=== PATIENT | male | born 1940 | race Caucasian/White ===

== ENCOUNTER 2017-08-12 13:11 | Inpatient (IN) | payer OTHER ==
[~2017-08-12] VITALS: Ht 167.6 cm; Wt 54.3 kg
[2017-08-12 14:14] LABS: EOSINOPHIL (%) 0 % (0-5); HEMATOCRIT 34.3 % (38.0-50.0); IMMATURE GRANULOCYTE (%) 0.6 % (0.0-0.7); IMMATURE GRANULOCYTE COUNT 0.1 K/uL; INSTRUMENT ABS NEUTROPHIL CT 10.1 K/uL; MCH 29.2 PG (29.0-34.0); MCHC 32.7 G/DL (30.0-36.0); MCV 89.6 FL (86-99); MEAN PLAT.VOLUME 9.3 uM^3 (9.0-12.4); MONOCYTE (%) 7.6 % (3-12); MONOCYTE COUNT 0.9 K/uL (0-0.8); NEUTROPHIL (%) 83.6 % (45-76); NEUTROPHIL COUNT 10.1 K/uL (1.8-6.4); PLATELET COUNT 269 K/uL (156-360); RBC DIS.WIDTH-CV 12.8 % (11.8-14.6); RBC DIS.WIDTH-SD 41.8 % (39-53); RED BLOOD COUNT 3.83 M/uL (4.00-5.50); WHITE BLOOD COUNT 12.1 K/uL (4.1-10.2)
[2017-08-12 14:20] LABS: INTER. NORMALIZED RATIO 1.2
[2017-08-12 14:22] LABS: PTT 28.1 SEC (25-37)
[2017-08-12 14:22] LABS: CHLORIDE 100 mEq/L (99-109); SODIUM 137 mEq/L (136-147)
[2017-08-12 14:23] LABS: GLUCOSE 255 mg/dL (70-99)
[2017-08-12 14:25] LABS: ANION GAP 15 MEQ/L (2-14)
[2017-08-12 14:27] LABS: GFR ESTIMATE (CALCULATED) > 59 mL/min/ (58.99-99999)
[2017-08-12 14:28] LABS: UREA NITROGEN (BUN) 17 mg/dL (9-23)
[2017-08-12 14:35] LABS: TROP-I INTERPRETATION NEGATIVE; TROPONIN-I < 0.01 ng/mL (0.0-0.30)
[2017-08-12 15:19] LABS: BASE EXCESS -0.8 mEq/L (-3 to +3); BICARBONATE 23.4 mEq/L (22-26); CARBOXY HGB 2.2 % (0-5); METHEMOGLOBIN 1.2 % (0-1.5); PCO2 36 mm Hg (35-45); PO2 69 mm Hg (80-100); pH 7.42 (7.35-7.45)
[2017-08-12 15:20] LABS: COMMENTS - BLOOD GASES A+C+; DEVICE NC; O2 FLOW 1 L/MIN; SITE LR
[2017-08-12] MEDS ORDERED: ADVAIR 250/501 DISK IH (15:52)
[2017-08-12] MEDS ORDERED: PROAIR HFA8.5 GM IH (15:53)
[2017-08-12] MEDS ORDERED: PRAVACHOL40 MG PO (15:53)
[2017-08-12] MEDS ORDERED: SPIRIVA RESPIMAT4 GM IH (15:53)
[2017-08-12] MEDS ORDERED: GLUCOPHAGE1000 MG PO (15:54)
[2017-08-12] MEDS ORDERED: LOPRESSOR25 MG PO (15:55)
[2017-08-12] MEDS ORDERED: LANTUS 10100 UNITS/ SC (15:55)
[2017-08-12] MEDS ORDERED: SINGULAIR10 MG PO (15:56)
[2017-08-12] MEDS ORDERED: ALTACE10 MG PO (15:56)
[2017-08-12] MEDS ORDERED: THEO-24300 MG PO (15:57)
[2017-08-12 16:18] VITALS: BP 136/84
[2017-08-12 16:45] VITALS: BP 173/96
[2017-08-12 18:01] LABS: POINT-OF-CARE METER ID UU14314088
[2017-08-12 19:57] VITALS: BP 157/85
[2017-08-12 20:40] LABS: POINT-OF-CARE METER ID UU14174216
[2017-08-13 00:37] VITALS: BP 157/82
[2017-08-13 00:49] LABS: TROP-I INTERPRETATION NEGATIVE; TROPONIN-I 0.03 ng/mL (0.0-0.30)
[2017-08-13 05:10] VITALS: BP 136/70
[2017-08-13 06:17] LABS: HEMATOCRIT 31.2 % (38.0-50.0); MCH 29.5 PG (29.0-34.0); MCV 89.4 FL (86-99); MEAN PLAT.VOLUME 9.3 uM^3 (9.0-12.4); PLATELET COUNT 269 K/uL (156-360); RBC DIS.WIDTH-CV 12.7 % (11.8-14.6); RED BLOOD COUNT 3.49 M/uL (4.00-5.50); WHITE BLOOD COUNT 12.1 K/uL (4.1-10.2)
[2017-08-13 06:41] LABS: ANION GAP 13 MEQ/L (2-14); CHLORIDE 96 MEQ/L (99-109); GFR ESTIMATE (CALCULATED) > 59 mL/min/ (58.99-99999); GLUCOSE 310 mg/dL (70-99); SAMPLE HEMOLYSIS CHECK 0; SAMPLE ICTERIC CHECK 0; SAMPLE LIPEMIA CHECK 0; SODIUM 133 MEQ/L (136-147); UREA NITROGEN (BUN) 20 mg/dL (9-23)
[2017-08-13 06:54] LABS: TROP-I INTERPRETATION NEGATIVE; TROPONIN-I < 0.01 ng/mL (0.0-0.30)
[2017-08-13 07:10] VITALS: BP 143/76
[2017-08-13 08:24] LABS: POINT-OF-CARE METER ID UU14314088; POINT-OF-CARE USER ID ENVKC36
[2017-08-13 11:55] VITALS: BP 152/87
[2017-08-13 12:06] LABS: POINT-OF-CARE METER ID UU13113698; POINT-OF-CARE USER ID ENVKC36
[2017-08-13 15:33] VITALS: BP 162/74
[2017-08-13 16:33] LABS: POINT-OF-CARE METER ID UU13113698; POINT-OF-CARE USER ID ENVKC36
[2017-08-13 19:00] VITALS: BP 164/81
[2017-08-13 21:09] LABS: POINT-OF-CARE METER ID UU13113698
[2017-08-14 00:10] VITALS: BP 168/94
[2017-08-14 04:00] VITALS: BP 133/82
[2017-08-14 05:43] LABS: EOSINOPHIL (%) 0 % (0-5); HEMATOCRIT 30.3 % (38.0-50.0); IMMATURE GRANULOCYTE (%) 0.9 % (0.0-0.7); IMMATURE GRANULOCYTE COUNT 0.1 K/uL; INSTRUMENT ABS NEUTROPHIL CT 10.9 K/uL; LYMPHOCYTE COUNT 0.4 K/uL (1.0-2.8); MCH 29.3 PG (29.0-34.0); MCHC 33.3 G/DL (30.0-36.0); MCV 87.8 FL (86-99); MEAN PLAT.VOLUME 9.4 uM^3 (9.0-12.4); MONOCYTE (%) 2.2 % (3-12); MONOCYTE COUNT 0.3 K/uL (0-0.8); NEUTROPHIL (%) 93.6 % (45-76); NEUTROPHIL COUNT 10.9 K/uL (1.8-6.4); PLATELET COUNT 280 K/uL (156-360); RBC DIS.WIDTH-CV 12.5 % (11.8-14.6); RBC DIS.WIDTH-SD 40.2 % (39-53); RED BLOOD COUNT 3.45 M/uL (4.00-5.50); WHITE BLOOD COUNT 11.6 K/uL (4.1-10.2)
[2017-08-14 06:11] LABS: ANION GAP 9 MEQ/L (2-14); CHLORIDE 98 MEQ/L (99-109); GFR ESTIMATE (CALCULATED) > 59 mL/min/ (58.99-99999); GLUCOSE 189 mg/dL (70-99); POTASSIUM 4.3 MEQ/L (3.7-5.4); SAMPLE HEMOLYSIS CHECK 0; SAMPLE ICTERIC CHECK 0; SAMPLE LIPEMIA CHECK 0; SODIUM 135 MEQ/L (136-147); UREA NITROGEN (BUN) 28 mg/dL (9-23)
[2017-08-14 07:46] LABS: POINT-OF-CARE METER ID UU14314088; POINT-OF-CARE USER ID ENVKC36
[2017-08-14 08:00] VITALS: BP 155/86
[2017-08-14 11:40] VITALS: BP 173/85
[2017-08-14 17:21] VITALS: BP 177/92
[2017-08-14 17:40] VITALS: BP 150/75
[2017-08-14 17:41] LABS: POINT-OF-CARE METER ID UU14149397
[2017-08-14 21:37] LABS: POINT-OF-CARE METER ID UU14149397
[2017-08-15] VITALS (7 sets, daily range): BP systolic 149–183; BP diastolic 74–88
[2017-08-15 06:29] LABS: POINT-OF-CARE METER ID UU14117124
[2017-08-15 07:07] LABS: EOSINOPHIL (%) 0 % (0-5); HEMATOCRIT 30.8 % (38.0-50.0); IMMATURE GRANULOCYTE (%) 1.5 % (0.0-0.7); IMMATURE GRANULOCYTE COUNT 0.2 K/uL; INSTRUMENT ABS NEUTROPHIL CT 9.9 K/uL; LYMPHOCYTE COUNT 0.5 K/uL (1.0-2.8); MCH 29.2 PG (29.0-34.0); MCHC 33.1 G/DL (30.0-36.0); MCV 88.3 FL (86-99); MEAN PLAT.VOLUME 9.2 uM^3 (9.0-12.4); MONOCYTE COUNT 0.4 K/uL (0-0.8); NEUTROPHIL (%) 90.1 % (45-76); NEUTROPHIL COUNT 9.9 K/uL (1.8-6.4); PLATELET COUNT 309 K/uL (156-360); RBC DIS.WIDTH-CV 12.6 % (11.8-14.6); RBC DIS.WIDTH-SD 40.9 % (39-53); RED BLOOD COUNT 3.49 M/uL (4.00-5.50)
[2017-08-15 07:30] LABS: ANION GAP 7 MEQ/L (2-14); CHLORIDE 101 MEQ/L (99-109); GFR ESTIMATE (CALCULATED) > 59 mL/min/ (58.99-99999); GLUCOSE 140 mg/dL (70-99); POTASSIUM 4.5 MEQ/L (3.7-5.4); SAMPLE HEMOLYSIS CHECK 0; SAMPLE ICTERIC CHECK 0; SAMPLE LIPEMIA CHECK 0; SODIUM 139 MEQ/L (136-147); UREA NITROGEN (BUN) 23 mg/dL (9-23)
[2017-08-15 09:39] LABS: POINT-OF-CARE METER ID UU13113781; POINT-OF-CARE USER ID ENVKC36
[2017-08-15 14:16] LABS: POINT-OF-CARE METER ID UU14188577
[2017-08-15 16:45] LABS: POINT-OF-CARE METER ID UU14188577
[2017-08-15 21:21] LABS: POINT-OF-CARE METER ID UU14117124
[2017-08-16 04:19] VITALS: BP 169/86
[2017-08-16 06:42] LABS: POINT-OF-CARE METER ID UU14188577
[2017-08-16 07:29] VITALS: BP 141/79
[2017-08-16 11:43] VITALS: BP 179/87
[2017-08-16 12:02] LABS: POINT-OF-CARE METER ID UU14117124
[2017-08-16 15:50] VITALS: BP 170/86
[2017-08-16 16:22] LABS: POINT-OF-CARE METER ID UU14188577
[2017-08-16 19:44] VITALS: BP 173/96
[2017-08-16 21:56] LABS: POINT-OF-CARE METER ID UU14208753
[2017-08-16 23:22] VITALS: BP 158/87
[2017-08-17 06:46] LABS: POINT-OF-CARE METER ID UU14117124
[2017-08-17 07:34] VITALS: BP 171/95
[2017-08-17 11:50] VITALS: BP 141/82
[2017-08-17 16:19] VITALS: BP 136/88
[2017-08-17 17:02] LABS: POINT-OF-CARE METER ID UU14208753
[2017-08-17 19:34] VITALS: BP 178/84
[2017-08-17 21:49] LABS: POINT-OF-CARE METER ID UU14208753
[2017-08-17 23:25] VITALS: BP 138/68
[2017-08-18 03:35] VITALS: BP 160/85
[2017-08-18 06:45] LABS: POINT-OF-CARE METER ID UU14117124
[2017-08-18 07:31] VITALS: BP 164/88
[2017-08-18 11:16] VITALS: BP 151/73
[2017-08-18] MEDS ORDERED: AMOX TR-K CLV1 EAC4 PO (12:49)
[2017-08-18] MEDS ORDERED: LOPRESSOR25 MG PO ×2 (12:49→13:03)
[2017-08-18] MEDS ORDERED: AMLODIPINE BESY10 MG PO (12:49)
[2017-08-18] MEDS ORDERED: PREDNISONE10 MG PO (12:53)
[2017-08-18] MEDS ORDERED: LANTUS 10100 UNITS/ SC (13:09)
[2017-08-18] MEDS ORDERED: SPIRIVA RESPIMAT4 GM IH (13:30)
[2017-08-18] MEDS ORDERED: PROAIR HFA8.5 GM IH (13:30)
[2017-08-18] MEDS ORDERED: ADVAIR 250/501 DISK IH (13:30)
[2017-08-20 10:38] LABS: POINT-OF-CARE METER ID UU14188577
== END 2017-08-18 14:18 | disposition home health service (06) | DRG 189 ==
LOC: EME 13:11 → 4EAST 15:11 → EDOF 15:11 → ENRESERV 15:12 → 4EAST 16:02 → ENRESERV 08-14 14:37 → 3EAST 08-14 16:05
PROVIDERS: Emergency Medicine; Internal Medicine; Student in an Organized Health Care Education/Training Program
DX: J96.01 Acute respiratory failure with hypoxia (principal); J44.1 Chronic obstructive pulmonary disease with (acute) exacerbation; J44.0 Chronic obstructive pulmonary disease with (acute) lower respiratory infection; J18.9 Pneumonia, unspecified organism; J20.9 Acute bronchitis, unspecified; E11.65 Type 2 diabetes mellitus with hyperglycemia; E78.5 Hyperlipidemia, unspecified; I10 Essential (primary) hypertension; I49.3 Ventricular premature depolarization; Z79.4 Long term (current) use of insulin; Z87.891 Personal history of nicotine dependence; Z91.14 Patient's other noncompliance with medication regimen
CPT/HCPCS: 36600; 71010; 71275; 80048; 82803; 82948; 84484; 85025; 85027; 85610; 85730; 87449; 87502; 93005; 93306; 94640; 94640 76; 94760; 94799; 99202; 99281; 99285; J0360; J0456; J0696; J1650; J1815; J2920; J2930; J7030; J7512

== ENCOUNTER 2017-10-27 10:53 | Inpatient (IN) | payer OTHER ==
[~2017-10-27] VITALS: Ht 167.6 cm; Wt 54.7 kg
[~2017-10-27 10:53] MED LIST: ADVAIR 250/501 DISK IH; ALTACE10 MG PO; AMLODIPINE BESY10 MG PO; AMOX TR-K CLV1 EAC4 PO; GLUCOPHAGE1000 MG PO; LANTUS 10100 UNITS/ SC; LOPRESSOR25 MG PO; PRAVACHOL40 MG PO; PREDNISONE10 MG PO; PROAIR HFA8.5 GM IH; SINGULAIR10 MG PO; SPIRIVA RESPIMAT4 GM IH; THEO-24300 MG PO
[2017-10-27 11:33] LABS: BASOPHIL (%) 0.1 % (0-1); EOSINOPHIL (%) 0 % (0-5); HEMATOCRIT 40.8 % (38.0-50.0); HEMOGLOBIN 13.7 G/DL (12.5-16.6); IMMATURE GRANULOCYTE (%) 0.4 % (0.0-0.7); LYMPHOCYTE (%) 3.4 % (15-42); LYMPHOCYTE COUNT 0.5 K/uL (1.0-2.8); MCHC 33.6 G/DL (30.0-36.0); MCV 86.4 FL (86-99); MONOCYTE (%) 5.9 % (3-12); MONOCYTE COUNT 0.8 K/uL (0-0.8); NEUTROPHIL (%) 90.2 % (45-76); NEUTROPHIL COUNT 12.9 K/uL (1.8-6.4); PLATELET COUNT 433 K/uL (156-360); RBC DIS.WIDTH-CV 12.2 % (11.8-14.6); RBC DIS.WIDTH-SD 39.2 % (39-53); RED BLOOD COUNT 4.72 M/uL (4.00-5.50); WHITE BLOOD COUNT 14.3 K/uL (4.1-10.2)
[2017-10-27 11:42] LABS: INTER. NORMALIZED RATIO 1.2
[2017-10-27 11:43] LABS: CHLORIDE 101 mEq/L (99-109); POTASSIUM 3.7 mEq/L (3.7-5.4); SODIUM 145 mEq/L (136-147)
[2017-10-27 11:45] LABS: GLUCOSE 313 mg/dL (70-99); PTT 25.5 SEC (25-37)
[2017-10-27 11:49] LABS: GFR ESTIMATE (CALCULATED) > 59 mL/min/ (58.99-99999); UREA NITROGEN (BUN) 21 mg/dL (9-23)
[2017-10-27 11:56] LABS: TROP-I INTERPRETATION NEGATIVE; TROPONIN-I 0.26 ng/mL (0.0-0.30)
[2017-10-27] MEDS ORDERED: PROAIR HFA8.5 GM IH (15:58)
[2017-10-27] MEDS ORDERED: COMBIVENT RESPIM4 GM IH (15:59)
[2017-10-27] MEDS ORDERED: VITAMIN B-12500 MC3 PO (16:01)
[2017-10-27] MEDS ORDERED: LOPRESSOR25 MG PO (16:05)
[2017-10-27] MEDS ORDERED: LANTUS 10100 UNITS/ SC (16:07)
[2017-10-27] MEDS ORDERED: SPIRIVA RESPIMAT4 GM IH (16:10)
[2017-10-27] MEDS ORDERED: ADVAIR 250/501 DISK IH (16:18)
[2017-10-27 18:00] LABS: TROP-I INTERPRETATION NEGATIVE; TROPONIN-I 0.24 ng/mL (0.0-0.30)
[2017-10-27 18:27] VITALS: BP 148/96
[2017-10-27 19:26] VITALS: BP 152/83
[2017-10-27 22:53] VITALS: BP 131/80
[2017-10-28 02:57] VITALS: BP 122/73
[2017-10-28 04:59] LABS: HEMATOCRIT 37.1 % (38.0-50.0); HEMOGLOBIN 12.4 G/DL (12.5-16.6); MCH 29.4 PG (29.0-34.0); MCHC 33.4 G/DL (30.0-36.0); MCV 87.9 FL (86-99); PLATELET COUNT 410 K/uL (156-360); RBC DIS.WIDTH-CV 12.4 % (11.8-14.6); RBC DIS.WIDTH-SD 39.8 % (39-53); RED BLOOD COUNT 4.22 M/uL (4.00-5.50); WHITE BLOOD COUNT 15.3 K/uL (4.1-10.2)
[2017-10-28 05:08] LABS: CHLORIDE 98 mEq/L (99-109); SODIUM 138 mEq/L (136-147)
[2017-10-28 05:09] LABS: GLUCOSE 182 mg/dL (70-99)
[2017-10-28 05:13] LABS: GFR ESTIMATE (CALCULATED) > 59 mL/min/ (58.99-99999)
[2017-10-28 05:14] LABS: UREA NITROGEN (BUN) 27 mg/dL (9-23)
[2017-10-28 05:15] LABS: POTASSIUM 4.7 mEq/L (3.7-5.4)
[2017-10-28 09:00] VITALS: BP 143/90
[2017-10-28 12:00] VITALS: BP 128/79
[2017-10-28 18:50] LABS: APPEARANCE CLEAR ((CLEAR)); BILIRUBIN NEGATIVE; BLOOD NEGATIVE; COLOR YELLOW ((YELLOW)); GLUCOSE (STRIP) >=500; KETONES NEGATIVE; LEUKOCYTES NEGATIVE; NITRITE NEGATIVE; PROTEIN (STRIP) NEGATIVE; SPECIFIC GRAVITY 1.021 (1.000-1.030); UCUL ADDED? NO; UROBILINOGEN 0.2 MG/DL (0.2-1.0)
[2017-10-28 19:29] VITALS: BP 129/67
[2017-10-28 22:22] VITALS: BP 122/73
[2017-10-29 04:03] VITALS: BP 137/81
[2017-10-29 05:32] LABS: HEMATOCRIT 33.4 % (38.0-50.0); HEMOGLOBIN 10.7 G/DL (12.5-16.6); MCH 28.1 PG (29.0-34.0); MCV 87.7 FL (86-99); PLATELET COUNT 407 K/uL (156-360); RBC DIS.WIDTH-CV 12.3 % (11.8-14.6); RBC DIS.WIDTH-SD 39.5 % (39-53); RED BLOOD COUNT 3.81 M/uL (4.00-5.50); WHITE BLOOD COUNT 13.4 K/uL (4.1-10.2)
[2017-10-29 07:01] VITALS: BP 108/59
[2017-10-29 11:10] VITALS: BP 110/63
[2017-10-29 13:20] LABS: GLUCOSE 404 mg/dL (70-99)
[2017-10-29 16:09] VITALS: BP 110/61
[2017-10-29 18:26] LABS: TROP-I INTERPRETATION NEGATIVE; TROPONIN-I 0.09 ng/mL (0.0-0.30)
[2017-10-29 19:42] VITALS: BP 139/63
[2017-10-29 23:22] LABS: TROP-I INTERPRETATION NEGATIVE; TROPONIN-I 0.07 ng/mL (0.0-0.30)
[2017-10-29 23:38] VITALS: BP 106/60
[2017-10-30 03:52] VITALS: BP 105/57
[2017-10-30 07:18] LABS: HEMATOCRIT 31.9 % (38.0-50.0); HEMOGLOBIN 10.5 G/DL (12.5-16.6); MCH 28.7 PG (29.0-34.0); MCHC 32.9 G/DL (30.0-36.0); MCV 87.2 FL (86-99); PLATELET COUNT 391 K/uL (156-360); RBC DIS.WIDTH-SD 38.9 % (39-53); RED BLOOD COUNT 3.66 M/uL (4.00-5.50); WHITE BLOOD COUNT 9.7 K/uL (4.1-10.2)
[2017-10-30 07:41] LABS: CHLORIDE 100 MEQ/L (99-109); CREATININE 0.9 MG/DL (0.6-1.3); GFR ESTIMATE (CALCULATED) > 59 mL/min/ (58.99-99999); GLUCOSE 220 mg/dL (70-99); MAGNESIUM 1.8 mg/dl (1.3-2.7); POTASSIUM 4.2 MEQ/L (3.7-5.4); SODIUM 138 MEQ/L (136-147)
[2017-10-30 07:46] LABS: UREA NITROGEN (BUN) 43 mg/dL (9-23)
[2017-10-30 08:14] VITALS: BP 154/92
[2017-10-30 12:04] VITALS: BP 124/72
[2017-10-30 15:23] VITALS: BP 116/66
[2017-10-30 19:27] VITALS: BP 149/67
[2017-10-30 23:26] VITALS: BP 115/65
[2017-10-31 03:48] VITALS: BP 128/65
[2017-10-31 07:16] LABS: HEMATOCRIT 34.3 % (38.0-50.0); HEMOGLOBIN 11.4 G/DL (12.5-16.6); MCH 29.5 PG (29.0-34.0); MCHC 33.2 G/DL (30.0-36.0); MCV 88.9 FL (86-99); PLATELET COUNT 400 K/uL (156-360); RBC DIS.WIDTH-CV 12.3 % (11.8-14.6); RED BLOOD COUNT 3.86 M/uL (4.00-5.50); WHITE BLOOD COUNT 12.2 K/uL (4.1-10.2)
[2017-10-31 07:41] LABS: CHLORIDE 99 MEQ/L (99-109); CREATININE 0.8 MG/DL (0.6-1.3); GFR ESTIMATE (CALCULATED) > 59 mL/min/ (58.99-99999); GLUCOSE 207 mg/dL (70-99); SODIUM 141 MEQ/L (136-147); UREA NITROGEN (BUN) 32 mg/dL (9-23)
[2017-10-31 08:16] LABS: BASE EXCESS 5.8 mEq/L (-3 to +3); CARBOXY HGB 1.9 % (0-5); METHEMOGLOBIN 1.8 % (0-1.5); PCO2 40 mm Hg (35-45); PO2 60 mm Hg (80-100); pH 7.48 (7.35-7.45)
[2017-10-31 08:17] LABS: BICARBONATE 29.8 mEq/L (22-26); COMMENTS - BLOOD GASES A+C+; DEVICE NC; O2 FLOW 3 L/MIN; SITE LR; TOTAL RESP RATE 19 resp/min
[2017-10-31 08:39] VITALS: BP 142/70
[2017-10-31 11:11] VITALS: BP 149/82
[2017-10-31 15:27] VITALS: BP 148/83
[2017-10-31 19:13] VITALS: BP 117/65
[2017-10-31 23:10] VITALS: BP 142/79
[2017-11-01] VITALS (7 sets, daily range): BP systolic 118–167; BP diastolic 60–78
[2017-11-01 11:55] LABS: HEMATOCRIT 33.7 % (38.0-50.0); HEMOGLOBIN 11.2 G/DL (12.5-16.6); MCH 29.2 PG (29.0-34.0); MCHC 33.2 G/DL (30.0-36.0); PLATELET COUNT 448 K/uL (156-360); RBC DIS.WIDTH-CV 12.3 % (11.8-14.6); RBC DIS.WIDTH-SD 39.6 % (39-53); RED BLOOD COUNT 3.83 M/uL (4.00-5.50); WHITE BLOOD COUNT 13.4 K/uL (4.1-10.2)
[2017-11-01 12:28] LABS: CHLORIDE 96 MEQ/L (99-109); POTASSIUM 4.2 MEQ/L (3.7-5.4); SODIUM 135 MEQ/L (136-147)
[2017-11-01 12:35] LABS: CREATININE 0.8 MG/DL (0.6-1.3); GFR ESTIMATE (CALCULATED) > 59 mL/min/ (58.99-99999); UREA NITROGEN (BUN) 20 mg/dL (9-23)
[2017-11-01 12:36] LABS: GLUCOSE 331 mg/dL (70-99)
[2017-11-02 03:54] VITALS: BP 133/65
[2017-11-02 06:00] LABS: BASOPHIL (%) 0.1 % (0-1); EOSINOPHIL (%) 0 % (0-5); HEMATOCRIT 32.7 % (38.0-50.0); HEMOGLOBIN 10.5 G/DL (12.5-16.6); IMMATURE GRANULOCYTE (%) 1.1 % (0.0-0.7); LYMPHOCYTE (%) 9.9 % (15-42); LYMPHOCYTE COUNT 0.8 K/uL (1.0-2.8); MCHC 32.1 G/DL (30.0-36.0); MCV 87.2 FL (86-99); MONOCYTE (%) 8.8 % (3-12); MONOCYTE COUNT 0.7 K/uL (0-0.8); NEUTROPHIL (%) 80.1 % (45-76); NEUTROPHIL COUNT 6.4 K/uL (1.8-6.4); PLATELET COUNT 493 K/uL (156-360); RBC DIS.WIDTH-CV 12.1 % (11.8-14.6); RED BLOOD COUNT 3.75 M/uL (4.00-5.50)
[2017-11-02 06:14] LABS: CHLORIDE 99 MEQ/L (99-109); CREATININE 0.7 MG/DL (0.6-1.3); GFR ESTIMATE (CALCULATED) > 59 mL/min/ (58.99-99999); POTASSIUM 3.7 MEQ/L (3.7-5.4); SODIUM 140 MEQ/L (136-147); UREA NITROGEN (BUN) 16 mg/dL (9-23)
[2017-11-02 06:20] LABS: GLUCOSE 132 mg/dL (70-99)
[2017-11-02 07:26] VITALS: BP 122/62
[2017-11-02 10:45] VITALS: BP 122/72
[2017-11-02 17:19] VITALS: BP 122/75
[2017-11-02 20:45] VITALS: BP 116/55
[2017-11-03 00:35] VITALS: BP 130/68
[2017-11-03 05:12] VITALS: BP 110/55; BP 1110/55
[2017-11-03 07:58] VITALS: BP 118/55
[2017-11-03] MEDS ORDERED: LOPRESSOR25 MG PO (10:25)
[2017-11-03] MEDS ORDERED: TAMSULOSIN HCL0.4 MG PO (10:25)
[2017-11-03] MEDS ORDERED: FUROSEMIDE20 MG PO (10:26)
[2017-11-03] MEDS ORDERED: PREDNISONE20 MG PO (10:30)
[2017-11-03] MEDS ORDERED: DRONABINOL2.5 MG PO (10:34)
[2017-11-03 10:52] VITALS: BP 117/63
== END 2017-11-03 16:15 | disposition home health service (06) | DRG 189 ==
LOC: EME 10:53 → EDOF 14:00 → 4EAST 14:00 → 3EAST 14:00 → EDOF 14:13 → ENRESERV 14:13 → 4EAST 18:08 → ENRESERV 10-29 08:23 → 3EAST 10-29 11:02
PROVIDERS: Emergency Medicine; Internal Medicine; Internal Medicine Pulmonary Disease; Physician Assistant
DX: J96.01 Acute respiratory failure with hypoxia (principal); J44.0 Chronic obstructive pulmonary disease with (acute) lower respiratory infection; J20.9 Acute bronchitis, unspecified; J44.1 Chronic obstructive pulmonary disease with (acute) exacerbation; Z87.891 Personal history of nicotine dependence; F41.9 Anxiety disorder, unspecified; F32.9 Major depressive disorder, single episode, unspecified; E78.5 Hyperlipidemia, unspecified; I11.0 Hypertensive heart disease with heart failure; I50.9 Heart failure, unspecified; E11.65 Type 2 diabetes mellitus with hyperglycemia; R33.8 Other retention of urine; R63.6 Underweight; Z68.1 Body mass index [BMI] 19.9 or less, adult; I25.2 Old myocardial infarction; R13.10 Dysphagia, unspecified; Z91.19 Patient's noncompliance with other medical treatment and regimen; Z79.4 Long term (current) use of insulin; N40.1 Benign prostatic hyperplasia with lower urinary tract symptoms; T38.0X5A Adverse effect of glucocorticoids and synthetic analogues, initial encounter; Z87.01 Personal history of pneumonia (recurrent)
CPT/HCPCS: 36600; 71045; 71275; 74230; 80048; 81003; 82803; 82948; 83735; 83880; 84443; 84484; 84999; 85025; 85027; 85379; 85610; 85730; 87502; 92611 GN; 93005; 93306; 94640; 94640 76; 94760; 94799; 97530 GP; 99202; 99281; 99285; J0692; J1644; J1650; J1815; J1940; J2920; J2930; J7512; J7644; Q0167